=== PATIENT | female | born 1940 | race Hispanic/Latino ===

== ENCOUNTER 2017-06-30 08:48 | Day surgery (SDC) | payer MEDICARE ==
[2017-06-30 09:33] VITALS: BMI 26.7
[2017-06-30] MEDS ORDERED: Propofol 10 mg/ml Inj (20 ML) ONE (12:23)
[2017-06-30] MEDS ORDERED: Lactated Ringer's 500 ML IV SCH (12:30)
[2017-06-30 13:03] VITALS: O2SAT 100
[2017-06-30 13:21] VITALS: TEMP 97.2
[2017-06-30 13:54] VITALS: BP 136/80; PULSE 74; RESP 18
== END 2017-06-30 13:50 | disposition home or self-care (01) ==
LOC: C.ENDO 08:48
PROVIDERS: ATTEND Internal Medicine Gastroenterology
DX: K21.0 Gastro-esophageal reflux disease with esophagitis (principal); K29.00 Acute gastritis without bleeding; K31.7 Polyp of stomach and duodenum; K29.50 Unspecified chronic gastritis without bleeding; B96.81 Helicobacter pylori [H. pylori] as the cause of diseases classified elsewhere
CPT/HCPCS: 43239; 88305; J2704; J7120

== ENCOUNTER 2018-11-07 10:42 | Outpatient (CLI) | payer MEDICARE | END 2018-11-07 10:43 | disposition home or self-care (01) | LOC: C.MAMMO 10:42 | DX: Z12.31 Encounter for screening mammogram for malignant neoplasm of breast (principal) ==